=== PATIENT | female | born 1995 | race Caucasian/White ===

== ENCOUNTER 2016-10-09 20:04 | Emergency (ER) | payer OTHER ==
[2016-10-09 20:13] VITALS: BP 133/92; TEMP 99.3; O2SAT 95
[2016-10-09] MEDS ORDERED: OSELTAMIVIR PHOSPHATE 75 MG CAP PO ONE (20:30)
[2016-10-09] MEDS ORDERED: HYDROCODONE/APAP 5/325 TAB PO ONE (20:30)
[2016-10-09] MEDS ORDERED: IBUPROFEN 600 MG TAB PO ONE (20:30)
--- NOTE | 2016-10-09 20:34 | EDPHY ---
H & P Stated Complaint: cough since Wednesday and fever starting today Time Seen by Provider: 10/09/16 20:24 HPI/ROS: CHIEF COMPLAINT: Fever, cough, congestion, myalgias HISTORY OF PRESENT ILLNESS: The patient presents the ED with a 2 day history of fever, cough, congestion and myalgias. The patient denies significant past medical history. She has been around friends who are sick with a similar upper respiratory infection. The patient describes fairly typical flu-like symptoms with severe myalgias and arthralgias. REVIEW OF SYSTEMS: A comprehensive 10 point review of systems is otherwise negative aside from elements mentioned in the history of present illness. Source: Patient Exam Limitations: No limitations - Personal History LMP (Females 10-55): 15-21 Days Ago Current Tetanus/Diphtheria Vaccine: Yes Current Tetanus Diphtheria and Acellular Pertussis (TDAP): Yes - Medical/Surgical History Hx Asthma: No Hx Chronic Respiratory Disease: No Hx Diabetes: No Hx Cardiac Disease: No Hx Renal Disease: No Hx Cirrhosis: No Hx Alcoholism: No Hx HIV/AIDS: No Hx Splenectomy or Spleen Trauma: No Other PMH: no PMH. no PSH - Social History Smoking Status: Light smoker - Physical Exam Exam: General Appearance: Alert, no distress Eyes: Pupils equal and round no pallor or injection ENT, Mouth: Mucous membranes moist Respiratory: There are no retractions, lungs are clear to auscultation Cardiovascular: Regular rate and rhythm Gastrointestinal: Abdomen is soft and nontender, no masses, bowel sounds normal Neurological: A&O, normal motor function, normal sensory exam, normal cranial nerves Skin: Warm and dry, no rashes Musculoskeletal: Neck is supple nontender Extremities: symmetrical, full range of motion Psychiatric: Patient is oriented X 3, there is no agitation Constitutional: Initial Vital Signs Temperature (C) 37.4 C 10/09/16 20:10 Heart Rate 125 H 10/09/16 20:10 Respiratory Rate 20 10/09/16 20:10 Blood Pressure 133/92 H 10/09/16 20:10 O2 Sat (%) 95 10/09/16 20:10 O2 Delivery Mode Room Air Allergies/Adverse Reactions: No Known Allergies Allergy (Unverified 10/09/16 20:09) Home Medications: Medication Instructions Recorded Norethindrone 10/09/16 Medical Decision Making ED Course/Re-evaluation: The patient is well-appearing. She has mild tachycardia presents to the ED with a flu-like illness. She does not appear to be dehydrated. In the ED she received Motrin, Tamiflu, Buckhorn and Zofran. The patient will be discharged home with plans for supportive care for likely influenza. She is given customary return precautions. The patient has no clinical evidence of pneumonia or meningitis. Differential Diagnosis: Differential diagnosis considered includes otitis media, pharyngitis, viral syndrome, influenza, pneumonia Departure - Departure Disposition: Home, Routine, Self-Care Clinical Impression: Influenza Condition: Fair Instructions: Influenza (ED) Additional Instructions: 1. Take Tamiflu as prescribed for likely influenza infection. 2. Zofran as needed for nausea. 3. Buckhorn as needed for severe pain. 4. Take Ibuprofen or Motrin 600 mg by mouth three times a day. 5. Please return to the ED for markedly worsening symptoms, difficulty breathing , vomiting or other concerns.
[2016-10-09] MEDS ORDERED: HYDROCOD/APAP 5/325 PREPACK#6 BTL TAKEHOME ONE (20:36)
[2016-10-09] MEDS ORDERED: ONDANSETRON 4MG PREPACK#2 BTL TAKEHOME ONE (20:36)
[2016-10-09 21:05] VITALS: PULSE 102; RESP 18
== END 2016-10-09 21:05 | disposition home or self-care (01) ==
DX: J11.1 Influenza due to unidentified influenza virus with other respiratory manifestations (principal); F17.200 Nicotine dependence, unspecified, uncomplicated

== ENCOUNTER 2016-11-15 21:37 | Emergency (ER) | payer OTHER ==
[2016-11-15] MEDS ORDERED: methylPREDNISolone SOD SUCC 125 MG/2 ML VIAL ONE (21:58)
[2016-11-15] MEDS ORDERED: FAMOTIDINE 20 MG/NACL/50 ML BAG IV ONE (21:58)
[2016-11-15] MEDS ORDERED: predniSONE 20 MG TAB PO ONE (22:14)
--- NOTE | 2016-11-15 22:18 | EDPHY ---
H & P Stated Complaint: hives and throat "tightening", unknown trigger - Personal History Current Tetanus/Diphtheria Vaccine: Yes Current Tetanus Diphtheria and Acellular Pertussis (TDAP): Yes Tetanus Vaccine Date: 2013 - Medical/Surgical History Hx Asthma: No Hx Chronic Respiratory Disease: No Hx Diabetes: No Hx Cardiac Disease: No Hx Renal Disease: No Hx Cirrhosis: No Hx Alcoholism: No Hx HIV/AIDS: No Hx Splenectomy or Spleen Trauma: No Other PMH: no PMH. no PSH - Social History Smoking Status: Former smoker Time Seen by Provider: 11/15/16 22:06 HPI/ROS: Chief complaint: Allergic reaction History of present illness: This is a 21-year-old female who presents to the emergency department concerned she is having allergic reaction. Patient reports the onset of symptoms this morning. She initially developed a rash that has progressively worsened to involve her whole body. The rash progressed throughout the day. This evening she noticed her face swelling and she felt like she was having trouble breathing at which time she came to the emergency room. She denies a history of allergic reactions. She denies specific precipitating factors. She denies any alleviating factors. She denies other associated signs or symptoms. Review of systems: A 10 point review of systems was obtained and other than described above is negative (Devon Lazaro) - Physical Exam Exam: General Appearance: Alert, nontoxic. Eyes: Pupils equal and round no pallor or injection. ENT, Mouth: No angioedema. Respiratory: There are no retractions, lungs are clear to auscultation. Cardiovascular: Regular rate and rhythm. Gastrointestinal: Abdomen is soft and nontender, no masses, bowel sounds normal. Neurological: Alert and oriented x4. Strength and sensation intact and symmetrical. Skin: Diffuse urticarial rash noted to the extremities and torso. No pustules , vesicles or petechiae. Musculoskeletal: Neck is supple nontender. Extremities are symmetrical, full range of motion. Psychiatric: Patient is oriented X 3, there is no agitation. (Devon Lazaro) Constitutional: Initial Vital Signs Temperature (C) 37.5 C 11/15/16 21:55 Heart Rate 85 11/15/16 21:55 Respiratory Rate 20 11/15/16 21:55 Blood Pressure 147/104 H 11/15/16 21:55 O2 Sat (%) 99 11/15/16 21:55 O2 Delivery Mode Room Air Allergies/Adverse Reactions: No Known Allergies Allergy (Unverified 10/09/16 20:09) Home Medications: Medication Instructions Recorded EPINEPHRINE [EPIPEN] 0.3 mg IM ONCE #2 syr 11/15/16 Junel Fe 24 Tablet 11/15/16 predniSONE 40 mg PO DAILY 4 Days 11/15/16 Medical Decision Making ED Course/Re-evaluation: Patient seen under the supervision of my secondary supervising physician Dr. Yanira Sue. Patient presents to the emergency department concerned she is having an allergic reaction with rash and trouble breathing. On presentation she is nontoxic. Afebrile and vital signs are stable. She does have a diffuse urticarial rash consistent with an allergic reaction. No evidence of airway involvement. She is symptomatically treated and observed for number of hours in the emergency room with near resolution of symptoms. Patient will be discharged home. Home care is discussed including the continued use of prednisone, Benadryl and Pepcid. She has further prescribed epinephrine pens and their use is discussed. She is asked to follow up with a primary care doctor for recheck. Return precautions are given. Patient voiced understanding and agreement with plan. (Devon Lazaro) Differential Diagnosis: Included but not limited to allergic reaction, anaphylaxis, viral exanthem ( Devon Lazaro) Other Provider: PHYSICIAN DOCUMENTATION: The patient was evaluated and managed by the Physician [employer] Clerk. My co- signature indicates that I have reviewed this chart and I agree with the findings and plan of care as documented. I am the secondary supervising physician. (Yanira Sue) - Data Points Medications Given: Discontinued Medications Diphenhydramine HCl (Benadryl Injection) 50 mg IVP EDNOW ONE Stop: 11/15/16 22:24 Last Admin: 11/15/16 22:05 Dose: 50 mg Famotidine/Sodium Chloride (Pepcid 20 Mg (Premix)) 50 mls @ 200 mls/hr IV EDNOW ONE Stop: 11/15/16 22:38 Last Admin: 11/15/16 22:05 Dose: 50 mls Sodium Chloride (Ns) 1,000 mls @ 0 mls/hr IV ONCE ONE PRN Reason: Wide Open Stop: 11/15/16 22:27 Last Admin: 11/15/16 22:38 Dose: 1,000 mls Methylprednisolone Sodium Succinate (Solu-Medrol) 125 mg IVP EDNOW ONE Stop: 11/15/16 22:24 Last Admin: 11/15/16 22:05 Dose: 125 mg Prednisone (Prednisone) 40 mg PO EDNOW ONE Stop: 11/15/16 22:15 Last Admin: 11/15/16 23:23 Dose: 40 mg Departure - Departure Disposition: Home, Routine, Self-Care Clinical Impression: Allergic reaction Condition: Good Instructions: Anaphylaxis (ED) Additional Instructions: Follow-up with the primary care doctor for continued evaluation and care Take steroids as prescribed until finished even feeling better Use Benadryl 25 mg every 6 hours for the next 2-3 days Take Pepcid 20 mg every 12 hours for the next 2-3 days Carry epinephrine pens at all times with you, if symptoms recur and you're having trouble breathing use them and then seek immediate emergency care If symptoms do worsen or new symptoms develop seek immediate emergency medical care Referrals: NONE *PRIMARY CARE P,. [Primary Care Provider] - As per Instructions [facility],. [Clinic] - As per Instructions Christopher Quick MD [Medical Doctor] - As per Instructions Prescriptions: EPINEPHRINE [EPIPEN] 0.3 mg IM ONCE #2 syr predniSONE 40 mg PO DAILY 4 Days
[2016-11-15] MEDS ORDERED: methylPREDNISolone SOD SUCC 125 MG/2 ML VIAL IVP ONE (22:23)
[2016-11-15] MEDS ORDERED: FAMOTIDINE 20 MG/NACL 50 ML IV ONE (22:24)
[2016-11-15] MEDS ORDERED: NS 1,000 ML IV ONE (22:26)
[2016-11-15 23:10] VITALS: RESP 16
[2016-11-15 23:26] VITALS: BP 119/79; PULSE 75; TEMP 98.1; O2SAT 96
== END 2016-11-15 23:34 | disposition home or self-care (01) ==
DX: T78.40XA Allergy, unspecified, initial encounter (principal); Z87.891 Personal history of nicotine dependence
CPT/HCPCS: 96374; J1200